=== PATIENT | female | born 1980 | race Caucasian/White ===

== ENCOUNTER 2020-03-16 22:11 | Emergency (ER) | payer SELFPAY ==
[2020-03-16 22:21] VITALS: BP 113/73; PULSE 98; RESP 16; TEMP 36.9; O2SAT 98; BMI 25.7
[2020-03-16 23:43] VITALS: BP 00/00; PULSE 0; RESP 0; TEMP -17.7; TEMP 0
== END 2020-03-16 23:46 | disposition left against medical advice (07) ==
PROVIDERS: Emergency Provider Emergency Medicine
DX: Z53.21 Procedure and treatment not carried out due to patient leaving prior to being seen by health care provider (principal); M25.572 Pain in left ankle and joints of left foot
CPT/HCPCS: 99211